=== PATIENT | male | born 1940 | race Caucasian/White ===

== ENCOUNTER 2018-01-20 09:28 | Observation (INO) ==
--- NOTE | 2018-01-20 09:47 | ED ---
HPI General Chief Complaint: Neuro Symptoms/Deficit Stated Complaint: Poss neuro Time Seen by Provider: 01/20/18 09:46 Source: patient Mode of arrival: ambulatory Limitations: no limitations History of Present Illness HPI Narrative: Patient apparently around 8:30 in the morning started to develop some left-sided facial weakness slight word speech and left upper extremity weakness, the patient and slowly started to resolve over the next hour ( presently only has slight facial weakness, but clear speech and no extremity weakness)... but was still concerned and came into the emergency department for evaluation. Patient is from [facility] and does not have any local doctors. Patient has a previous history of congestive heart failure AICD, pacemaker hyperlipidemia and diabetes as su factors. Onset (ago): hour(s) Last Observed Normal: 08:30 Timing confirmed by: family member Location: left face History of same: No Severity: mild Quality: weak Relieving factors: time Exacerbating factors: none Context: gradual onset On Anticoagulants: No Associated symptoms: denies other symptoms Treatments Prior to Arrival: Aspirin Related Data Home Medications Medication Instructions Recorded Confirmed allopurinol 300 mg PO BID 01/20/18 01/20/18 amlodipine 10 mg PO DAILY 01/20/18 01/20/18 atorvastatin 80 mg PO DAILY 01/20/18 01/20/18 carvedilol 25 mg PO BID 01/20/18 01/20/18 cephalexin [Keflex] 500 mg PO BID 01/20/18 01/20/18 chlorthalidone 25 mg PO DAILY 01/20/18 01/20/18 clonidine 1 patch TRANSDERMAL QWEEK 01/20/18 01/20/18 fentanyl 25 mcg TRANSDERMAL Q72H 01/20/18 01/20/18 gabapentin 300 mg PO TID 01/20/18 01/20/18 hydralazine 100 mg PO TID 01/20/18 01/20/18 icosapent ethyl [Vascepa] 2 g PO BID 01/20/18 01/20/18 losartan 100 mg PO BID 01/20/18 01/20/18 metformin 500 mg PO BID 01/20/18 01/20/18 ondansetron 4 mg PO Q6-8H PRN 01/20/18 01/20/18 oxycodone-acetaminophen [Percocet] 1 tab PO Q4-6H PRN 01/20/18 01/20/18 promethazine 25 mg PO Q6H PRN 01/20/18 01/20/18 sotalol 80 mg PO Q12H 01/20/18 01/20/18 Previous Rx's Medication Instructions Recorded clopidogrel [Plavix] 75 mg PO DAILY #30 tab 01/21/18 Allergies Allergy/AdvReac Type Severity Reaction Status Date / Time levofloxacin [From Levaquin] Allergy Swelling Verified 01/20/18 09:52 of Lip/Tongue/Throat Sulfa (Sulfonamide AdvReac Rash Verified 01/20/18 09:52 Antibiotics) zolpidem [From Ambien] AdvReac Confusion Verified 01/20/18 09:52 Review of Systems Except as stated in HPI: all other systems reviewed are negative PMFSH History History Provided By: Patient Medical History Medical History ASHD (arteriosclerotic heart disease) (Acute) Artificial pacemaker (Acute) CHF (congestive heart failure) (Acute) Chronic back pain (Acute) Controlled type 2 diabetes mellitus (Acute) Diabetes (Acute) GERD (gastroesophageal reflux disease) (Acute) Gout (Acute) HTN (hypertension) (Acute) Hiatal hernia (Acute) High cholesterol (Acute) Hyperlipemia (Acute) ICD (implantable cardioverter-defibrillator) in place (Acute) Past heart attack (Acute) Spinal stenosis (Acute) TIA (transient ischemic attack) (Acute) Surgical History Surgical History History of total bilateral knee replacement (Acute) Status post carotid surgery (Acute) Social History Social History Substance History: No History of Abuse Second Hand Smoke Exposure: No Smoking Status: Never smoker How Often Do You Have a Drink Containing Alcohol: Monthly or less Hx Recent Travel: Yes Recent Travel in [facility] within the Last 8 Weeks: Yes Recent Out of Country Travel within the Last 8 Weeks: No Immunization History Tetanus Immunization: <5 Years Hx Influenza Vaccine This Season: Yes Exam Narrative Exam Narrative: GENERAL: Well-nourished, well-developed patient in no apparent distress. SKIN: Warm and dry. HEAD: Atraumatic. Normocephalic. EYES: Pupils equal and round. No scleral icterus. No injection or drainage. ENT: No nasal bleeding or discharge. Mucous membranes pink and moist. NECK: Trachea midline. No JVD. CARDIOVASCULAR: Regular rate and rhythm. no rubs or gallops RESPIRATORY: No accessory muscle use. Clear to auscultation. Breath sounds equal bilaterally. GASTROINTESTINAL: Abdomen soft, non-tender, nondistended. No rebound or guarding MUSCULOSKELETAL: Extremities without clubbing, cyanosis, or edema. No obvious deformities. NEUROLOGICAL: Awake and alert. No obvious cranial nerve deficits. Motor grossly within normal limits. Five out of 5 muscle strength in the arms and legs. Normal speech. PSYCHIATRIC: Appropriate mood and affect; insight and judgment normal. Course Initial Documented Vital Signs Temperature 97.3 F L 01/20/18 09:30 Pulse Rate 62 01/20/18 09:30 Respiratory Rate 20 01/20/18 09:30 Blood Pressure 163/78 H 01/20/18 09:30 Pulse Oximetry 98 01/20/18 09:30 Last Documented Vital Signs Temperature 97.7 F 01/21/18 15:50 Pulse Rate 51 L 01/21/18 15:50 Respiratory Rate 16 01/21/18 15:50 Blood Pressure 112/59 L 01/21/18 15:50 Pulse Oximetry 96 01/21/18 15:50 NIH Stroke Scale NIH Stroke Scale Level of Consciousness: 0-Alert Orientation Questions: 0-Answers both correct Responds to Commands: 0-Both tasks correct Gaze Eye Movement: 0-Horizontal movement WNL Visual Doran: 0-No visual field defect Facial Movement: 1-Minor facial palsy Motor Functions Arm LEFT: 0-No drift Motor Functions Arm RIGHT: 0-No drift Motor Functions Leg LEFT: 0-No drift Motor Functions Leg RIGHT: 0-No drift Limb Ataxia: 0-No ataxia Sensory Loss: 0-No sensory loss Best Language: 0-Normal Articulation: 0-Normal Extinction or Inattention Sensory: 0-Absent Total: 1 Medical Decision Making Lab Data Lab results reviewed: Yes I reviewed the patient's lab results. Result diagrams: 01/21/18 03:35 01/21/18 03:35 Lab Results 01/20/18 01/20/18 01/20/18 Range/Units 10:04 10:04 10:04 WBC 10.8 (4.0-11.0) th/mm3 RBC 5.09 (4.50-5.90) mil/mm3 Hgb 14.1 (13.0-17.0) gm/dL POC Hgb (Calc) 15.0 (13.0-17.0) g/dL Hct 43.3 (39.0-51.0) % POC Hct 44.0 (39-51.0) % MCV 85.0 (80.0-100.0) fL MCH 27.7 (27.0-34.0) pg MCHC 32.6 (32.0-36.0) % RDW 17.2 (11.6-17.2) % Plt Count 217 (150-450) th/mm3 MPV 7.5 (7.0-11.0) fL Neut % (Auto) 73.0 H (16.0-70.0) % Lymph % (Auto) 15.1 (9.0-44.0) % Christian % (Auto) 6.3 (0.0-8.0) % Eos % (Auto) 4.9 H (0.0-4.0) % Baso % (Auto) 0.7 (0.0-2.0) % Neut # (Auto) 7.9 H (1.8-7.7) th/mm3 Lymph # (Auto) 1.6 (1.0-4.8) th/mm3 Christian # (Auto) 0.7 (0.0-0.9) th/mm3 Eos # (Auto) 0.5 H (0.0-0.4) th/mm3 Baso # (Auto) 0.1 (0.0-0.2) th/mm3 WBC Differential . Differential Comment Auto diff final PT 11.0 (9.8-11.6) sec INR 1.1 Ratio APTT 25.6 (24.3-30.1) sec Fibrinogen 309 (227-377) mg/dL POC Sodium 139 (137-144) mmol/L Sodium (136-145) meq/L POC Potassium 4.1 (3.6-5.0) mmol/L Potassium (3.5-5.1) meq/L POC Chloride 101 L (102-111) mmol/L Chloride (98-107) meq/L Carbon Dioxide (21.0-32.0) meq/L Anion Gap (5-15) meq/L POC BUN 13 (5-21) mg/dL BUN (7-18) mg/dL Creatinine (0.60-1.30) mg/dL POC Creatinine 1.1 (0.6-1.3) mg/dL Estimated GFR (>89) mL/min POC Glucose 145 H (68-110) mg/dL Random Glucose (74-106) mg/dL Hemoglobin A1c (4.3-6.0) % Calcium (8.5-10.1) mg/dL Phosphorus (2.5-4.9) mg/dL Magnesium (1.5-2.5) mg/dL Total Bilirubin (0.2-1.0) mg/dL AST (15-37) U/L ALT (12-78) U/L Alkaline Phosphatase (45-117) U/L Total Creatine Kinase (39-308) U/L Troponin I (0.02-0.05) ng/mL Total Protein (6.4-8.2) g/dL Albumin (3.4-5.0) g/dL Triglycerides (42-150) mg/dL Cholesterol (120-200) mg/dL LDL Cholesterol, Calc (0-99) mg/dL HDL Cholesterol (40.0-60.0) mg/dL Cholesterol/HDL Ratio Ratio TSH (0.358-3.740) uIU/mL Free T4 (0.76-1.46) ng/dL Urine Color (Yellw/Straw) Urine Clarity (Clear) Urine pH (5.0-8.5) Ur Specific [place] (1.002-1.035) Urine Protein (Neg-Trace) mg/dL Urine Glucose (UA) (Negative) mg/dL Urine Ketones (Negative) mg/dL Urine Occult Blood (Negative) Urine Nitrate (Negative) Urine Bilirubin (Negative) Urine Urobilinogen (Less than 2) mg/dL Ur Leukocyte Esterase (Negative) Urine RBC (0-3) /hpf Urine WBC (0-5) /hpf Ur Squamous Epith Cells (0-5) /hpf Urine Mucus (Occasional) /lpf Micro UA Comment Urine Culture Comments Blood Type Blood Type Recheck Antibody Screen 01/20/18 01/20/18 01/20/18 Range/Units 10:04 10:04 11:20 WBC (4.0-11.0) th/mm3 RBC (4.50-5.90) mil/mm3 Hgb (13.0-17.0) gm/dL POC Hgb (Calc) (13.0-17.0) g/dL Hct (39.0-51.0) % POC Hct (39-51.0) % MCV (80.0-100.0) fL MCH (27.0-34.0) pg MCHC (32.0-36.0) % RDW (11.6-17.2) % Plt Count (150-450) th/mm3 MPV (7.0-11.0) fL Neut % (Auto) (16.0-70.0) % Lymph % (Auto) (9.0-44.0) % Christian % (Auto) (0.0-8.0) % Eos % (Auto) (0.0-4.0) % Baso % (Auto) (0.0-2.0) % Neut # (Auto) (1.8-7.7) th/mm3 Lymph # (Auto) (1.0-4.8) th/mm3 Christian # (Auto) (0.0-0.9) th/mm3 Eos # (Auto) (0.0-0.4) th/mm3 Baso # (Auto) (0.0-0.2) th/mm3 WBC Differential Differential Comment PT (9.8-11.6) sec INR Ratio APTT (24.3-30.1) sec Fibrinogen (227-377) mg/dL POC Sodium (137-144) mmol/L Sodium (136-145) meq/L POC Potassium (3.6-5.0) mmol/L Potassium (3.5-5.1) meq/L POC Chloride (102-111) mmol/L Chloride (98-107) meq/L Carbon Dioxide (21.0-32.0) meq/L Anion Gap (5-15) meq/L POC BUN (5-21) mg/dL BUN (7-18) mg/dL Creatinine (0.60-1.30) mg/dL POC Creatinine (0.6-1.3) mg/dL Estimated GFR (>89) mL/min POC Glucose (68-110) mg/dL Random Glucose (74-106) mg/dL Hemoglobin A1c (4.3-6.0) % Calcium (8.5-10.1) mg/dL Phosphorus (2.5-4.9) mg/dL Magnesium (1.5-2.5) mg/dL Total Bilirubin (0.2-1.0) mg/dL AST (15-37) U/L ALT (12-78) U/L Alkaline Phosphatase (45-117) U/L Total Creatine Kinase 135 (39-308) U/L Troponin I Less than 0.02 L (0.02-0.05) ng/mL Total Protein (6.4-8.2) g/dL Albumin (3.4-5.0) g/dL Triglycerides (42-150) mg/dL Cholesterol (120-200) mg/dL LDL Cholesterol, Calc (0-99) mg/dL HDL Cholesterol (40.0-60.0) mg/dL Cholesterol/HDL Ratio Ratio TSH (0.358-3.740) uIU/mL Free T4 (0.76-1.46) ng/dL Urine Color Yellow (Yellw/Straw) Urine Clarity Clear (Clear) Urine pH 5.0 (5.0-8.5) Ur Specific [place] 1.026 (1.002-1.035) Urine Protein Negative (Neg-Trace) mg/dL Urine Glucose (UA) Negative (Negative) mg/dL Urine Ketones Negative (Negative) mg/dL Urine Occult Blood Negative (Negative) Urine Nitrate Negative (Negative) Urine Bilirubin Negative (Negative) Urine Urobilinogen Less than 2 (Less than 2) mg/dL Ur Leukocyte Esterase Negative (Negative) Urine RBC Less than 1 (0-3) /hpf Urine WBC Less than 1 (0-5) /hpf Ur Squamous Epith Cells <1 (0-5) /hpf Urine Mucus Few H (Occasional) /lpf Micro UA Comment Culture not ind Urine Culture Comments Culture not ind Blood Type B Positive Blood Type Recheck Required Antibody Screen Negative 01/20/18 01/20/18 01/20/18 Range/Units 16:54 18:30 22:04 WBC (4.0-11.0) th/mm3 RBC (4.50-5.90) mil/mm3 Hgb (13.0-17.0) gm/dL POC Hgb (Calc) (13.0-17.0) g/dL Hct (39.0-51.0) % POC Hct (39-51.0) % MCV (80.0-100.0) fL MCH (27.0-34.0) pg MCHC (32.0-36.0) % RDW (11.6-17.2) % Plt Count (150-450) th/mm3 MPV (7.0-11.0) fL Neut % (Auto) (16.0-70.0) % Lymph % (Auto) (9.0-44.0) % Christian % (Auto) (0.0-8.0) % Eos % (Auto) (0.0-4.0) % Baso % (Auto) (0.0-2.0) % Neut # (Auto) (1.8-7.7) th/mm3 Lymph # (Auto) (1.0-4.8) th/mm3 Christian # (Auto) (0.0-0.9) th/mm3 Eos # (Auto) (0.0-0.4) th/mm3 Baso # (Auto) (0.0-0.2) th/mm3 WBC Differential Differential Comment PT (9.8-11.6) sec INR Ratio APTT (24.3-30.1) sec Fibrinogen (227-377) mg/dL POC Sodium (137-144) mmol/L Sodium (136-145) meq/L POC Potassium (3.6-5.0) mmol/L Potassium (3.5-5.1) meq/L POC Chloride (102-111) mmol/L Chloride (98-107) meq/L Carbon Dioxide (21.0-32.0) meq/L Anion Gap (5-15) meq/L POC BUN (5-21) mg/dL BUN (7-18) mg/dL Creatinine (0.60-1.30) mg/dL POC Creatinine (0.6-1.3) mg/dL Estimated GFR (>89) mL/min POC Glucose 126 H 180 H (68-110) mg/dL Random Glucose (74-106) mg/dL Hemoglobin A1c (4.3-6.0) % Calcium (8.5-10.1) mg/dL Phosphorus (2.5-4.9) mg/dL Magnesium (1.5-2.5) mg/dL Total Bilirubin (0.2-1.0) mg/dL AST (15-37) U/L ALT (12-78) U/L Alkaline Phosphatase (45-117) U/L Total Creatine Kinase 121 (39-308) U/L Troponin I Less than 0.02 L (0.02-0.05) ng/mL Total Protein (6.4-8.2) g/dL Albumin (3.4-5.0) g/dL Triglycerides (42-150) mg/dL Cholesterol (120-200) mg/dL LDL Cholesterol, Calc (0-99) mg/dL HDL Cholesterol (40.0-60.0) mg/dL Cholesterol/HDL Ratio Ratio TSH (0.358-3.740) uIU/mL Free T4 (0.76-1.46) ng/dL Urine Color (Yellw/Straw) Urine Clarity (Clear) Urine pH (5.0-8.5) Ur Specific [place] (1.002-1.035) Urine Protein (Neg-Trace) mg/dL Urine Glucose (UA) (Negative) mg/dL Urine Ketones (Negative) mg/dL Urine Occult Blood (Negative) Urine Nitrate (Negative) Urine Bilirubin (Negative) Urine Urobilinogen (Less than 2) mg/dL Ur Leukocyte Esterase (Negative) Urine RBC (0-3) /hpf Urine WBC (0-5) /hpf Ur Squamous Epith Cells (0-5) /hpf Urine Mucus (Occasional) /lpf Micro UA Comment Urine Culture Comments Blood Type Blood Type Recheck Antibody Screen 01/21/18 01/21/18 01/21/18 Range/Units 00:15 03:25 03:35 WBC 9.7 (4.0-11.0) th/mm3 RBC 4.61 (4.50-5.90) mil/mm3 Hgb 12.9 L (13.0-17.0) gm/dL POC Hgb (Calc) (13.0-17.0) g/dL Hct 39.0 (39.0-51.0) % POC Hct (39-51.0) % MCV 84.6 (80.0-100.0) fL MCH 27.9 (27.0-34.0) pg MCHC 33.0 (32.0-36.0) % RDW 16.8 (11.6-17.2) % Plt Count 188 (150-450) th/mm3 MPV 7.1 (7.0-11.0) fL Neut % (Auto) 59.6 (16.0-70.0) % Lymph % (Auto) 23.9 (9.0-44.0) % Christian % (Auto) 9.2 H (0.0-8.0) % Eos % (Auto) 6.5 H (0.0-4.0) % Baso % (Auto) 0.8 (0.0-2.0) % Neut # (Auto) 5.8 (1.8-7.7) th/mm3 Lymph # (Auto) 2.3 (1.0-4.8) th/mm3 Christian # (Auto) 0.9 (0.0-0.9) th/mm3 Eos # (Auto) 0.6 H (0.0-0.4) th/mm3 Baso # (Auto) 0.1 (0.0-0.2) th/mm3 WBC Differential . Differential Comment Auto diff final PT (9.8-11.6) sec INR Ratio APTT (24.3-30.1) sec Fibrinogen (227-377) mg/dL POC Sodium (137-144) mmol/L Sodium (136-145) meq/L POC Potassium (3.6-5.0) mmol/L Potassium (3.5-5.1) meq/L POC Chloride (102-111) mmol/L Chloride (98-107) meq/L Carbon Dioxide (21.0-32.0) meq/L Anion Gap (5-15) meq/L POC BUN (5-21) mg/dL BUN (7-18) mg/dL Creatinine (0.60-1.30) mg/dL POC Creatinine (0.6-1.3) mg/dL Estimated GFR (>89) mL/min POC Glucose 100 (68-110) mg/dL Random Glucose (74-106) mg/dL Hemoglobin A1c (4.3-6.0) % Calcium (8.5-10.1) mg/dL Phosphorus (2.5-4.9) mg/dL Magnesium (1.5-2.5) mg/dL Total Bilirubin (0.2-1.0) mg/dL AST (15-37) U/L ALT (12-78) U/L Alkaline Phosphatase (45-117) U/L Total Creatine Kinase 97 (39-308) U/L Troponin I Less than 0.02 L (0.02-0.05) ng/mL Total Protein (6.4-8.2) g/dL Albumin (3.4-5.0) g/dL Triglycerides (42-150) mg/dL Cholesterol (120-200) mg/dL LDL Cholesterol, Calc (0-99) mg/dL HDL Cholesterol (40.0-60.0) mg/dL Cholesterol/HDL Ratio Ratio TSH (0.358-3.740) uIU/mL Free T4 (0.76-1.46) ng/dL Urine Color (Yellw/Straw) Urine Clarity (Clear) Urine pH (5.0-8.5) Ur Specific [place] (1.002-1.035) Urine Protein (Neg-Trace) mg/dL Urine Glucose (UA) (Negative) mg/dL Urine Ketones (Negative) mg/dL Urine Occult Blood (Negative) Urine Nitrate (Negative) Urine Bilirubin (Negative) Urine Urobilinogen (Less than 2) mg/dL Ur Leukocyte Esterase (Negative) Urine RBC (0-3) /hpf Urine WBC (0-5) /hpf Ur Squamous Epith Cells (0-5) /hpf Urine Mucus (Occasional) /lpf Micro UA Comment Urine Culture Comments Blood Type Blood Type Recheck Antibody Screen 01/21/18 01/21/18 01/21/18 Range/Units 03:35 03:35 03:35 WBC (4.0-11.0) th/mm3 RBC (4.50-5.90) mil/mm3 Hgb (13.0-17.0) gm/dL POC Hgb (Calc) (13.0-17.0) g/dL Hct (39.0-51.0) % POC Hct (39-51.0) % MCV (80.0-100.0) fL MCH (27.0-34.0) pg MCHC (32.0-36.0) % RDW (11.6-17.2) % Plt Count (150-450) th/mm3 MPV (7.0-11.0) fL Neut % (Auto) (16.0-70.0) % Lymph % (Auto) (9.0-44.0) % Christian % (Auto) (0.0-8.0) % Eos % (Auto) (0.0-4.0) % Baso % (Auto) (0.0-2.0) % Neut # (Auto) (1.8-7.7) th/mm3 Lymph # (Auto) (1.0-4.8) th/mm3 Christian # (Auto) (0.0-0.9) th/mm3 Eos # (Auto) (0.0-0.4) th/mm3 Baso # (Auto) (0.0-0.2) th/mm3 WBC Differential Differential Comment PT 11.8 H (9.8-11.6) sec INR 1.2 Ratio APTT (24.3-30.1) sec Fibrinogen (227-377) mg/dL POC Sodium (137-144) mmol/L Sodium 140 (136-145) meq/L POC Potassium (3.6-5.0) mmol/L Potassium 3.6 (3.5-5.1) meq/L POC Chloride (102-111) mmol/L Chloride 103 (98-107) meq/L Carbon Dioxide 28.1 (21.0-32.0) meq/L Anion Gap 9 (5-15) meq/L POC BUN (5-21) mg/dL BUN 18 (7-18) mg/dL Creatinine 1.14 (0.60-1.30) mg/dL POC Creatinine (0.6-1.3) mg/dL Estimated GFR 63 L (>89) mL/min POC Glucose (68-110) mg/dL Random Glucose 93 (74-106) mg/dL Hemoglobin A1c 6.5 H (4.3-6.0) % Calcium 8.3 L (8.5-10.1) mg/dL Phosphorus 3.9 (2.5-4.9) mg/dL Magnesium 1.6 (1.5-2.5) mg/dL Total Bilirubin 0.6 (0.2-1.0) mg/dL AST 12 L (15-37) U/L ALT 24 (12-78) U/L Alkaline Phosphatase 72 (45-117) U/L Total Creatine Kinase 92 (39-308) U/L Troponin I Less than 0.02 L (0.02-0.05) ng/mL Total Protein 6.5 (6.4-8.2) g/dL Albumin 3.3 L (3.4-5.0) g/dL Triglycerides 135 (42-150) mg/dL Cholesterol 78 L (120-200) mg/dL LDL Cholesterol, Calc 21 (0-99) mg/dL HDL Cholesterol 29.8 L (40.0-60.0) mg/dL Cholesterol/HDL Ratio 2.61 Ratio TSH 3.210 (0.358-3.740) uIU/mL Free T4 1.17 (0.76-1.46) ng/dL Urine Color (Yellw/Straw) Urine Clarity (Clear) Urine pH (5.0-8.5) Ur Specific [place] (1.002-1.035) Urine Protein (Neg-Trace) mg/dL Urine Glucose (UA) (Negative) mg/dL Urine Ketones (Negative) mg/dL Urine Occult Blood (Negative) Urine Nitrate (Negative) Urine Bilirubin (Negative) Urine Urobilinogen (Less than 2) mg/dL Ur Leukocyte Esterase (Negative) Urine RBC (0-3) /hpf Urine WBC (0-5) /hpf Ur Squamous Epith Cells (0-5) /hpf Urine Mucus (Occasional) /lpf Micro UA Comment Urine Culture Comments Blood Type Blood Type Recheck Antibody Screen 01/21/18 01/21/18 01/21/18 Range/Units 09:38 13:43 16:19 WBC (4.0-11.0) th/mm3 RBC (4.50-5.90) mil/mm3 Hgb (13.0-17.0) gm/dL POC Hgb (Calc) (13.0-17.0) g/dL Hct (39.0-51.0) % POC Hct (39-51.0) % MCV (80.0-100.0) fL MCH (27.0-34.0) pg MCHC (32.0-36.0) % RDW (11.6-17.2) % Plt Count (150-450) th/mm3 MPV (7.0-11.0) fL Neut % (Auto) (16.0-70.0) % Lymph % (Auto) (9.0-44.0) % Christian % (Auto) (0.0-8.0) % Eos % (Auto) (0.0-4.0) % Baso % (Auto) (0.0-2.0) % Neut # (Auto) (1.8-7.7) th/mm3 Lymph # (Auto) (1.0-4.8) th/mm3 Christian # (Auto) (0.0-0.9) th/mm3 Eos # (Auto) (0.0-0.4) th/mm3 Baso # (Auto) (0.0-0.2) th/mm3 WBC Differential Differential Comment PT (9.8-11.6) sec INR Ratio APTT (24.3-30.1) sec Fibrinogen (227-377) mg/dL POC Sodium (137-144) mmol/L Sodium (136-145) meq/L POC Potassium (3.6-5.0) mmol/L Potassium (3.5-5.1) meq/L POC Chloride (102-111) mmol/L Chloride (98-107) meq/L Carbon Dioxide (21.0-32.0) meq/L Anion Gap (5-15) meq/L POC BUN (5-21) mg/dL BUN (7-18) mg/dL Creatinine (0.60-1.30) mg/dL POC Creatinine (0.6-1.3) mg/dL Estimated GFR (>89) mL/min POC Glucose 134 H 116 H 153 H (68-110) mg/dL Random Glucose (74-106) mg/dL Hemoglobin A1c (4.3-6.0) % Calcium (8.5-10.1) mg/dL Phosphorus (2.5-4.9) mg/dL Magnesium (1.5-2.5) mg/dL Total Bilirubin (0.2-1.0) mg/dL AST (15-37) U/L ALT (12-78) U/L Alkaline Phosphatase (45-117) U/L Total Creatine Kinase (39-308) U/L Troponin I (0.02-0.05) ng/mL Total Protein (6.4-8.2) g/dL Albumin (3.4-5.0) g/dL Triglycerides (42-150) mg/dL Cholesterol (120-200) mg/dL LDL Cholesterol, Calc (0-99) mg/dL HDL Cholesterol (40.0-60.0) mg/dL Cholesterol/HDL Ratio Ratio TSH (0.358-3.740) uIU/mL Free T4 (0.76-1.46) ng/dL Urine Color (Yellw/Straw) Urine Clarity (Clear) Urine pH (5.0-8.5) Ur Specific [place] (1.002-1.035) Urine Protein (Neg-Trace) mg/dL Urine Glucose (UA) (Negative) mg/dL Urine Ketones (Negative) mg/dL Urine Occult Blood (Negative) Urine Nitrate (Negative) Urine Bilirubin (Negative) Urine Urobilinogen (Less than 2) mg/dL Ur Leukocyte Esterase (Negative) Urine RBC (0-3) /hpf Urine WBC (0-5) /hpf Ur Squamous Epith Cells (0-5) /hpf Urine Mucus (Occasional) /lpf Micro UA Comment Urine Culture Comments Blood Type Blood Type Recheck Antibody Screen Imaging Data Attestation: I personally reviewed and interpreted this imaging study as follows : Radiologist's impression: Chest X-Ray 01/20/18 09:53 CONCLUSION: 1. Mild platelike atelectasis versus scarring in the right middle lobe. 2. Otherwise, the rest of the lungs are grossly clear. Head CT 01/20/18 09:53 CONCLUSION: 1. Unremarkable CT scan of the brain for patient's age. Head CTA 01/20/18 09:53 CONCLUSION: 1. Unremarkable CTA of the brain. Neck CTA 01/20/18 09:53 CONCLUSION: 1. Eccentric bulky calcified plaque extending from the right carotid bulb to the internal carotid origin with resultant approximately 25-30% stenosis. 2. Circumferential calcified plaque at the origin of the left internal carotid artery with resultant approximately 20-25% stenosis. 3. Patent bilateral vertebral arteries. 4. Small bilateral thyroid nodules. Carotid Doppler Study 01/20/18 15:49 CONCLUSION: 1. Right Internal Carotid Artery: Findings indicate 50-69% stenosis. 2. Left Internal Carotid Artery: Findings indicate <50% stenosis. 3. Please note that a CTA of the carotids was performed on the same day and less than 30% stenosis is verified bilaterally. CTA is more accurate in delineating severity of disease than ultrasound. Discharge Plan Discharge Disposition Patient Disposition: 01 Discharge Home Discharge Condition Condition: Stable Discharge Order Discharge Orders: Discharge Order (Routine); Ordered 01/21/18 Ordered By: Vanesa Banegas Discharge Details Discharge Comment: Pending ECHO result Diagnosis: TIA (transient ischemic attack) Physicians Team ED Provider: Dionicio Don Primary Care Provider: UNKNOWN, Attending Provider: Collins Veloz Other Providers: Reese Messina Interventions Interventions: ED Discharge Assessment Last Done: 01/20/18 17:20 Status ED Status: Left Department Discharge Information Discharge Date/Time: 01/20/18 17:20
--- NOTE | 2018-01-20 10:22 | XR ---
EXAM DATE: 01/20/2018 10:17 AM EDT AGE/SEX: 77 years / Male INDICATIONS: . Shortness of breath. CLINICAL DATA: This is the patient's initial encounter. Patient reports that signs and symptoms have been present for 1 day and indicates a pain score of 0/10. MEDICAL/SURGICAL HISTORY: Congestive heart failure. Hypertension. Pacemaker. Defibrillator. COMPARISON: No prior exams available for comparison. FINDINGS: A single AP view of the chest demonstrates the lungs to be symmetrically aerated without evidence of mass, acute infiltrate or effusion. There is some minimal platelike atelectasis versus scarring in th e right middle lobe. The heart size is mildly enlarged. There is a pacemaker overlying the left chest . The bony structures are grossly intact.. CONCLUSION: 1. Mild platelike atelectasis versus scarring in the right middle lobe. 2. Otherwise, the rest of the lungs are grossly clear. Electronically signed by: Jf Mac MD 01/20/2018 10:21 AM EDT
[2018-01-20 10:24] LABS: Baso # (Auto) 0.1 th/mm3 (0.0-0.2); Baso % (Auto) 0.7 % (0.0-2.0); Eos # (Auto) 0.5 th/mm3 (0.0-0.4); Eos % (Auto) 4.9 % (0.0-4.0); Hematocrit 43.3 % (39.0-51.0); Hemoglobin 14.1 gm/dL (13.0-17.0); Lymph # (Auto) 1.6 th/mm3 (1.0-4.8); Lymph % (Auto) 15.1 % (9.0-44.0); Mean Corpuscular HGB Conc 32.6 % (32.0-36.0); Mean Corpuscular Hemoglobin 27.7 pg (27.0-34.0); Mean Platelet Volume 7.5 fL (7.0-11.0); Mono # (Auto) 0.7 th/mm3 (0.0-0.9); Mono % (Auto) 6.3 % (0.0-8.0); Neut # (Auto) 7.9 th/mm3 (1.8-7.7); Platelet Count 217 th/mm3 (150-450); Red Blood Count 5.09 mil/mm3 (4.50-5.90); Red Cell Distribution Width 17.2 % (11.6-17.2); White Blood Count 10.8 th/mm3 (4.0-11.0)
[2018-01-20 10:29] LABS: Activated Partial Thrombo Time 25.6 sec (24.3-30.1); INR 1.1 Ratio
[2018-01-20 10:45] LABS: Creatine Kinase 135 U/L (39-308)
[2018-01-20] MEDS: Sod Chloride 0.9% Inj 1,000 ML IV.CONT SCH (10:52)
--- NOTE | 2018-01-20 10:55 | CT ---
EXAM DATE: 01/20/2018 10:49 AM EDT AGE/SEX: 77 years / Male INDICATIONS: Left face numbness and left arm weakness CLINICAL DATA: This is the patient's initial encounter. Patient reports that signs and symptoms have been present for 1 day and indicates a pain score of 0/10. MEDICAL/SURGICAL HISTORY: Cardiovascular disease. Diabetes. Defibrillator. Pacemaker. RADIATION DOSE: 37.47 CTDI (mGy) COMPARISON: No prior exams available for comparison. TECHNIQUE: CT of the head without contrast. Using automated exposure control and adjustment of the mA and/or kV according to patient size, radiation dose was kept as low as reasonably achievable to ob tain optimal diagnostic quality images. DICOM format image data is available electronically for revi ew and comparison. FINDINGS: Cerebrum: The ventricles are normal for age. No evidence of midline shift, mass lesion, hemorrhage or acute infarction. No extraaxial fluid collections are seen. Posterior Fossa: The cerebellum and brainstem are intact. The 4th ventricle is midline. The cerebe llopontine angle is unremarkable. Extracranial: The visualized portion of the orbits is intact. Skull: The calvaria is intact. No evidence of skull fracture. CONCLUSION: 1. Unremarkable CT scan of the brain for patient's age. Electronically signed by: Jf Mac MD 01/20/2018 10:54 AM EDT
[2018-01-20 11:39] LABS: Bilirubin,Urine Negative (Negative); Clarity,Urine Clear (Clear); Color,Urine Yellow (Yellw/Straw); Glucose,Urine (UA) Negative (Negative); Leukocyte Esterase,Urine Negative (Negative); Mucus,Urine Few /lpf (Occasional); Nitrite,Urine Negative (Negative); Specific Gravity,Urine 1.026 (1.002-1.035); Squamous Epithelial Cell,Urine <1 /hpf (0-5)
--- NOTE | 2018-01-20 12:08 | ECG ---
Date Performed: 01/20/2018 Time Performed: 10:02:35 PTAGE: 77 years EKG: SINUS BRADYCARDIA WITH FIRST DEGREE AV BLOCK ANTERIOR MYOCARDIAL INFARCTION INFERIOR MYOCAR DIAL INFARCTION ABNORMAL ECG NO PREVIOUS TRACING DOCTOR: Juan Luna Interpretating Date/Time 01/20/2018 12:06:31
--- NOTE | 2018-01-20 13:14 | CT ---
EXAM DATE: 01/20/2018 1:03 PM EDT AGE/SEX: 77 years / Male INDICATIONS: Left face numbness and left arm weakness CLINICAL DATA: This is the patient's initial encounter. Patient reports that signs and symptoms have been present for 1 day and indicates a pain score of 0/10. MEDICAL/SURGICAL HISTORY: Diabetes. Cardiovascular disease. Defibrillator. Pacemaker. RADIATION DOSE: 28.20 CTDI (mGy) ; Combined studies COMPARISON: [facility] [place], CT HEAD W/O CONTRAST, 01/20/2018. . TECHNIQUE: Volumetric scanning was performed using a multi-row detector CT scanner during bolus infu delores of 73 ml Omnipaque 350 (iohexol) nonionic water-soluble contrast as a cumulative dose for multi ple exams. The data was post processed with a variety of visualization algorithms including full vo lume maximum intensity projection, multi-planar sliding thin slab reformation, curved planar reformat ion, and surface rendering techniques. Using automated exposure control and adjustment of the mA and /or kV according to patient size, radiation dose was kept as low as reasonably achievable to obtain o ptimal diagnostic quality images. DICOM format image data is available electronically for review and comparison. FINDINGS: There is excellent visualization of the major intracranial arteries out to the second-order branch ve ssels. There is no evidence for aneurysm, vessel truncation or stenosis, and no evidence for vascula r malformation. There are bilateral patent posterior communicating arteries. CONCLUSION: 1. Unremarkable CTA of the brain. Electronically signed by: Jf Mac MD 01/20/2018 1:12 PM EDT
--- NOTE | 2018-01-20 13:40 | CT ---
EXAM DATE: 01/20/2018 1:02 PM EDT AGE/SEX: 77 years / Male INDICATIONS: Left face numbness and left arm weakness CLINICAL DATA: This is the patient's initial encounter. Patient reports that signs and symptoms have been present for 1 day and indicates a pain score of 0/10. MEDICAL/SURGICAL HISTORY: Diabetes. Cardiovascular disease. Defibrillator. Pacemaker. RADIATION DOSE: 28.20 CTDI (mGy) ; Combined studies COMPARISON: [facility], CTA HEAD W CONTRAST W 3D, 01/20/2018. . TECHNIQUE: Volumetric scanning was performed using a multirow detector CT scanner during bolus infus ion of 73 ml Omnipaque 350 (iohexol) nonionic water-soluble contrast as a cumulative dose for multip le exams. The data was postprocessed with a variety of visualization algorithms including full-volu me maximum intensity projection, multiplanar sliding thin-slab reformation, curved-planar reformation , and surface-rendering techniques. Using automated exposure control and adjustment of the mA and/or kV according to patient size, radiation dose was kept as low as reasonably achievable to obtain opti mal diagnostic quality images. DICOM format image data is available electronically for review and co mparison. Elevated flow velocities and ICA/CCA ratios have been found to correlate with increased degrees of ve ssel stenosis, calculated as percentage of diameter relative to a normal segment of distal ICA/CCA. FINDINGS: Aortic Arch: There is two-vessel arch anatomy. No evidence of ostial narrowing Right Carotid: The common carotid artery is intact. Eccentric bulky calcified plaque extending from the carotid bulb to the origin of the internal carotid artery. Resultant approximately 25-30% stenosi s of the internal carotid origin. Internal carotid artery is otherwise patent to the skull base. The external carotid artery is intact. Left Carotid: The common carotid artery is intact. The carotid bulb has a normal configuration with out ulceration or narrowing circumferential calcified plaque at the origin of the internal carotid ar frederic with resultant approximately 20-25% stenosis. The external carotid artery is intact. Vertebrals: The vertebral arteries have a symmetric diameter. No stenotic lesions are seen. General Findings: Lung apices are clear. Bilateral thyroid nodules measuring up to 1 cm. No significa nt adenopathy. CONCLUSION: 1. Eccentric bulky calcified plaque extending from the right carotid bulb to the internal carotid or igin with resultant approximately 25-30% stenosis. 2. Circumferential calcified plaque at the origin of the left internal carotid artery with resultant approximately 20-25% stenosis. 3. Patent bilateral vertebral arteries. 4. Small bilateral thyroid nodules. Electronically signed by: Victor Hugo Fernandez MD 01/20/2018 1:38 PM EDT
[2018-01-20] MEDS ORDERED: Dextrose 50% in Water 50 ML Vial IV.PUSH PRN ×2 (15:50→16:00)
[2018-01-20] MEDS ORDERED: Acetaminophen 325 MG Tablet PO PRN (15:59)
[2018-01-20] MEDS ORDERED: oxyCODONE/Acetaminophen 10/325 Tablet PO PRN (15:59)
[2018-01-20] MEDS ORDERED: Naloxone Inj 0.4 MG/ML Vial IV.PUSH PRN (15:59)
[2018-01-20] MEDS ORDERED: Morphine Inj 4 MG/ML Vial IV.PUSH PRN ×3 (15:59)
--- NOTE | 2018-01-20 16:25 | P.HPIM ---
History of Present Illness Service: [facility] Primary Care Physician: UNKNOWN Chief Complaint: Possible neuro symptoms involving the left side History of Present Illness: Patient is a 77-year-old gentleman who presented to the emergency department today after having some left-sided facial weakness and some slight warty speech starting at 8:30 in the morning with some word finding and some left upper extremity weakness. The patient has slowly started to improve over the next hour or so but was still concerned came to the emergency department for evaluation. Patient is visiting from [place], [place]. Does not have any local doctors. Is staying in [facility]. Has previous history of congestive heart failure, AICD placement, pacemaker placement, hyperlipidemia and diabetes. Patient also notes that he is recently being treated for sinus infection with an unknown medication which we will try to obtain Patient was noted at 830 this morning to have some left facial weakness and difficulty with speech took an aspirin prior to coming to the hospital. - Diagnosis (1) TIA (transient ischemic attack) (2) Diabetes (3) Hypertension (4) Hyperlipidemia (5) Obesity (6) Gout (7) GERD (gastroesophageal reflux disease) (8) Hx TIA/stroke w/o resid Inpatient Certification: I certify that the inpatient services were ordered in accordance with Medicare regulations governing the order. This includes certification that hospital inpatient services are reasonable and necessary and in the case of services not specified as inpatient-only under 42 CFR 419.22(n), that they are appropriately provided as inpatient services in accordance to with the 2-midnight benchmark under 43 CFR 412.3(e) Review of Systems All other systems reviewed negative except as stated in HPI Constitutional: Reports fatigue, Denies anorexia, Denies body ache(s), Denies chills, Denies daytime sleepiness, Denies fever(s), Denies malaise, Denies night sweats Eyes: Denies blind spots, Denies blurry vision, Denies discharge, Denies dry eyes, Denies pain, Denies requires corrective lenses Ears, Nose, Mouth, and Throat: Denies abnormal hearing, Denies dental pain, Denies ear pain, Denies lip swelling, Denies nasal discharge, Denies nose pain, Denies ringing in the ears Cardiovascular: Denies chest pain, Denies excessive sweating, Denies generalized swelling, Denies leg sores, Denies rapid, pounding, or irregular heartbeat, Denies shortness of breath with activity, Denies shortness of breath causing sudden awakening Respiratory: Denies change in phlegm color, Denies excessive phlegm production, Denies shortness of breath, Denies wheezing Gastrointestinal: Denies abdominal pain, Denies belching, Denies constant urge to pass stool, Denies constipation, Denies feeling full early, Denies pain with swallowing Genitourinary: Denies testicle pain, Denies urinary frequency Musculoskeletal: Reports joint pain, Denies abnormal walking, Denies loss of height, Denies radiating pain into limb Skin/Breast: Denies breast pain, Denies change in skin color, Denies hair loss, Denies nipple discharge, Denies rash, Denies wounds Neurologic: Reports abnormal speech (Improved now), Reports other, Denies abnormal hearing, Denies abnormal walking, Denies dizziness, Denies localized weakness, Denies other visual disturbances, Denies seizure-like activity Psychiatric: Denies seeing things others do not see, Denies tactile hallucinations, Denies thoughts of hurting/killing yourself Endocrine: Denies cold intolerance, Denies increased hunger, Denies rapid, pounding, or irregular heartbeat Hematologic/Lymphatic: Denies easy bleeding, Denies easy bruising, Denies enlarged lymph nodes Allergic/Immunologic: Denies GI upset with certain foods, Denies hives, Denies seasonal runny nose, Denies throat swelling PMFSH - History History Provided By: Patient - Medical History Medical History: Medical History (Last Updated 01/20/18 @ 15:45 by Vonnie Shea) ASHD (arteriosclerotic heart disease) Artificial pacemaker CHF (congestive heart failure) Chronic back pain Controlled type 2 diabetes mellitus Diabetes GERD (gastroesophageal reflux disease) Gout HTN (hypertension) Hiatal hernia High cholesterol Hyperlipemia ICD (implantable cardioverter-defibrillator) in place Past heart attack Spinal stenosis TIA (transient ischemic attack) - Surgical History Surgical History: Surgical History (Last Updated 01/20/18 @ 10:15 by Vivek Wilkins) History of total bilateral knee replacement Status post carotid surgery - Tobacco History Second Hand Smoke Exposure: No Smoking Status: Never smoker - Alcohol History How Often Do You Have a Drink Containing Alcohol: Monthly or less - Substance Use History Substance History: No History of Abuse - Travel History History of Recent Travel: Yes Recent Travel in the [place] Within the Last 8 Weeks: Yes Recent Travel Out of the Country Within the Last 8 Weeks: No - Immunization History Tetanus Immunization: >5 Years Hx Influenza Vaccine This Season: Yes Medications and Allergies Active Medications: Active Medications Acetaminophen (Tylenol) 650 mg PO Q6HR PRN PRN Reason: PAIN SCALE 1 TO 2 Allopurinol (Zyloprim) 300 mg PO BID [facility] Amlodipine Besylate (Norvasc) 10 mg PO DAILY [facility] Atorvastatin Calcium (Lipitor) 80 mg PO DAILY [facility] Clonidine HCl (Catapress-Tts 0.2 Mg Patch.7d) 1 patch T-DERMAL QWEEK [facility] Dextrose (D50w Vial) 50 ml IV.PUSH UNSCH PRN PRN Reason: per Hypoglycemic Protocol Dextrose (D50w Vial) 50 ml IV.PUSH UNSCH PRN PRN Reason: PER HYPOGLYCEMIA PROTOCOL Famotidine (Pepcid) 20 mg PO BID [facility] Fentanyl (Duragesic 25 Mcg Patch.72hr) patch T-DERMAL Q72H [facility] Gabapentin (Neurontin) 300 mg PO TID [facility] Glucagon (Glucagon Inj) 1 mg OTHER UNSCH PRN PRN Reason: per Hypoglycemic Protocol Glucagon (Glucagon Inj) 1 mg OTHER PRN PRN PRN Reason: for Hypoglycemia Protocol Hydralazine HCl (Apresoline) 100 mg PO TID [facility] Sodium Chloride (Ns Inj) 1,000 mls @ 70 mls/hr IV.CONT .[id number] [facility] Last Admin: 01/20/18 10:52 Dose: 70 mls/hr Insulin Aspart (Novolog Insulin Correctional Sugar Inj) 0 unit SQ ACHS AND 3AM JOSE; Protocol Losartan Potassium (Cozaar) 100 mg PO BID [facility] Morphine Sulfate (Morphine Inj) 2 mg IV.PUSH Q3H PRN PRN Reason: PAIN 3-5; IF UABLE TO TAKE PO Morphine Sulfate (Morphine Inj) 4 mg IV.PUSH Q3H PRN PRN Reason: BREAKTHROUGH PAIN Morphine Sulfate (Morphine Inj) 4 mg IV.PUSH Q3H PRN PRN Reason: PAIN 6-10;IF UNABLE TO TAKE PO Naloxone HCl (Narcan Inj) 0.4 mg IV.PUSH UNSCH PRN PRN Reason: SEE LABEL COMMENTS Non-Formulary Medication (Carvedilol [Carvedilol]) 25 mg PO BID [facility] Non-Formulary Medication (Chlorthalidone) 25 mg PO DAILY [facility] Non-Formulary Medication (Icosapent Ethyl [Vascepa]) 2 g PO BID [facility] Ondansetron HCl (Zofran Odt) 4 mg PO Q6H PRN PRN Reason: Nausea Oxycodone/Acetaminophen (Percocet 10/325 Mg) 1 tab PO Q6H PRN PRN Reason: PAIN SCALE 6 TO 10 Oxycodone/Acetaminophen (Percocet 5/325 Mg) 1 tab PO Q6H PRN PRN Reason: PAIN SCALE 3 TO 5 Promethazine HCl (Phenergan) 25 mg PO Q6H PRN PRN Reason: Nausea Sotalol HCl (Betapace) 80 mg PO Q12HR [facility] Allergies Allergy/AdvReac Type Severity Reaction Status Date / Time levofloxacin [From Levaquin] Allergy Swelling Verified 01/20/18 09:52 of Lip/Tongue/Throat Sulfa (Sulfonamide AdvReac Rash Verified 01/20/18 09:52 Antibiotics) zolpidem [From Ambien] AdvReac Confusion Verified 01/20/18 09:52 Home Medications Medication Instructions Recorded Confirmed Type allopurinol 300 mg PO BID 01/20/18 01/20/18 History amlodipine 10 mg PO DAILY 01/20/18 01/20/18 History aspirin [Aspirin Low Dose] 81 mg PO DAILY 01/20/18 01/20/18 History atorvastatin 80 mg PO DAILY 01/20/18 01/20/18 History carvedilol 25 mg PO BID 01/20/18 01/20/18 History chlorthalidone 25 mg PO DAILY 01/20/18 01/20/18 History clonidine 1 patch TRANSDERMAL QWEEK 01/20/18 01/20/18 History fentanyl 25 mcg TRANSDERMAL Q72H 01/20/18 01/20/18 History gabapentin 300 mg PO TID 01/20/18 01/20/18 History hydralazine 100 mg PO TID 01/20/18 01/20/18 History icosapent ethyl [Vascepa] 2 g PO BID 01/20/18 01/20/18 History losartan 100 mg PO BID 01/20/18 01/20/18 History metformin 500 mg PO BID 01/20/18 01/20/18 History ondansetron 4 mg PO Q6-8H PRN 01/20/18 01/20/18 History oxycodone-acetaminophen [Percocet] 1 tab PO Q4-6H PRN 01/20/18 01/20/18 History promethazine 25 mg PO Q6H PRN 01/20/18 01/20/18 History sotalol 80 mg PO Q12H 01/20/18 01/20/18 History Exam Vital signs: Vital Signs 01/20/18 09:30 01/20/18 09:36 01/20/18 10:07 Temperature 97.3 F L Pulse Rate 62 94 H Respiratory Rate 20 Blood Pressure 163/78 H Pulse Oximetry 98 95 01/20/18 10:53 01/20/18 11:50 01/20/18 14:00 Temperature 97.8 F 97.8 F 98.1 F Pulse Rate 58 L 58 L 62 Respiratory Rate 16 16 18 Blood Pressure 147/67 H 143/71 H 167/71 H Pulse Oximetry 97 98 97 Intake & Output 01/19/18 01/20/18 01/20/18 18:59 06:59 18:59 Output Total 300 / 300 Balance -300 / -300 Weight 86.183 kg Output: Urine 300 / 300 Other: # Voids 1 Narrative: GENERAL: Awake alert and oriented 3 talkative and cooperative in no acute distress SKIN: Warm and dry. HEAD: Atraumatic. Normocephalic. EYES: Pupils equal and round. No scleral icterus. No injection or drainage. Extraocular muscles intact ENT: No nasal bleeding or discharge. Mucous membranes pink and moist. Tongue is midline NECK: Trachea midline. No JVD. No carotid bruits CARDIOVASCULAR: IRRegular rate and rhythm. S1-S2 no S3 or S4 no heave or thrill or rub or gallop RESPIRATORY: No accessory muscle use. Clear to auscultation. Breath sounds equal bilaterally. GASTROINTESTINAL: Abdomen soft, non-tender, nondistended. Hepatic and splenic margins not palpable. Obese MUSCULOSKELETAL: Extremities without clubbing, cyanosis, or edema. No obvious deformities. NEUROLOGICAL: Awake and alert. No obvious cranial nerve deficits. Motor grossly within normal limits. Five out of 5 muscle strength in the arms and legs. Normal speech. PSYCHIATRIC: Appropriate mood and affect; insight and judgment normal. Results - Labs CBC & Chem 7: 01/20/18 10:04 Labs: Short CBC 01/20/18 Range/Units 10:04 WBC 10.8 (4.0-11.0) th/mm3 Hgb 14.1 (13.0-17.0) gm/dL Hct 43.3 (39.0-51.0) % Plt Count 217 (150-450) th/mm3 Cardiac Enzymes 01/20/18 Range/Units 10:04 Total Creatine Kinase 135 (39-308) U/L Troponin I Less than 0.02 L (0.02-0.05) ng/mL Urine 01/20/18 Range/Units 11:20 Urine Color Yellow (Yellw/Straw) Urine Clarity Clear (Clear) Urine pH 5.0 (5.0-8.5) Ur Specific [place] 1.026 (1.002-1.035) Urine Protein Negative (Neg-Trace) mg/dL Urine Glucose (UA) Negative (Negative) mg/dL - Imaging Impressions Chest X-Ray 01/20/18 09:53 CONCLUSION: 1. Mild platelike atelectasis versus scarring in the right middle lobe. 2. Otherwise, the rest of the lungs are grossly clear. Head CT 01/20/18 09:53 CONCLUSION: 1. Unremarkable CT scan of the brain for patient's age. Head CTA 01/20/18 09:53 CONCLUSION: 1. Unremarkable CTA of the brain. Neck CTA 01/20/18 09:53 CONCLUSION: 1. Eccentric bulky calcified plaque extending from the right carotid bulb to the internal carotid origin with resultant approximately 25-30% stenosis. 2. Circumferential calcified plaque at the origin of the left internal carotid artery with resultant approximately 20-25% stenosis. 3. Patent bilateral vertebral arteries. 4. Small bilateral thyroid nodules. Caprini VTE Risk Assessment Caprini VTE Risk Assessment: Moderate/High Risk (score >= 2) Caprini Risk Assessment Model: Point Value = 1 Point Value = 2 Point Value = 3 Point Value = 5 Age 41-60 Minor surgery BMI > 25 kg/m2 Swollen legs Varicose veins or History of unexplained or recurrent spontaneous Oral contraceptives or hormone replacement Sepsis (< 1 month) Serious lung disease, including pneumonia (< 1 month) Abnormal pulmonary function Acute myocardial infarction Congestive heart failure (< 1 month) History of inflammatory bowel disease Medical patient at bed rest Age 61-74 Arthroscopic surgery Major open surgery (> 45 min) Laparoscopic surgery (> 45 min) Malignancy Confined to bed (> 72 hours) Immobilizing plaster cast Central venous access Age >= 75 History of VTE Family history of VTE Factor V Leiden Prothrombin [id number] Lupus anticoagulant Anticardiolipin antibodies Elevated serum homocysteine Heparin-induced thrombocytopenia Other congenital or acquired thrombophilia Stroke (< 1 month) Elective arthroplasty Hip, pelvis, or leg fracture Acute spinal cord injury (< 1 month) Prophylaxis Regimen: Total Risk Factor Score Risk Level Prophylaxis Regimen 0-1 Low Early ambulation 2 Moderate Order ONE of the following: *Sequential Compression Device (SCD) *Heparin 5000 units SQ BID 3-4 Higher Order ONE of the following medications: *Heparin 5000 units SQ TID *Enoxaparin/Lovenox 40 mg SQ daily (WT < 150 kg, CrCl > 30 mL/min) *Enoxaparin/Lovenox 30 mg SQ daily (WT < 150 kg, CrCl > 10-29 mL/min) *Enoxaparin/Lovenox 30 mg SQ BID (WT < 150 kg, CrCl > 30 mL/min) AND/OR *Sequential Compression Device (SCD) 5 or more Highest Order ONE of the following medications: *Heparin 5000 units SQ TID (Preferred with Epidurals) *Enoxaparin/Lovenox 40 mg SQ daily (WT < 150 kg, CrCl > 30 mL/min) *Enoxaparin/Lovenox 30 mg SQ daily (WT < 150 kg, CrCl > 10-29 mL/min) *Enoxaparin/Lovenox 30 mg SQ BID (WT < 150 kg, CrCl > 30 mL/min) AND *Sequential Compression Device (SCD) Assessment and Plan - Assessment (1) TIA (transient ischemic attack) Code(s): G45.9 - Transient cerebral ischemic attack, unspecified Status: Acute (2) Diabetes Code(s): E11.9 - Type 2 diabetes mellitus without complications Status: Acute (3) Hypertension Code(s): I10 - Essential (primary) hypertension Status: Acute (4) Hyperlipidemia Code(s): E78.5 - Hyperlipidemia, unspecified Status: Acute (5) Obesity Code(s): E66.9 - Obesity, unspecified Status: Acute (6) Gout Code(s): M10.9 - Gout, unspecified Status: Acute (7) GERD (gastroesophageal reflux disease) Code(s): K21.9 - Gastro-esophageal reflux disease without esophagitis Status: Acute (8) Hx TIA/stroke w/o resid Code(s): Z86.73 - Personal history of transient ischemic attack (TIA), and cerebral infarction without residual deficits Status: Acute - Plan Transient ischemic attack -Consult neurology -Carotid Dopplers -Echocardiogram -Aspirin -Fasting lipids -Cannot do MRIs due to pacemaker -Interrogate pacemaker -PT, OT, speech therapy eval and treat -Check TSH and free T4 and hemoglobin A1c -A.m. labs -Has already had CT of the head and CTAs of head and neck -Continue on aspirin -History of carotid surgery in the past Diabetes mellitus continue on sliding scale with Accu-Cheks before meals and at bedtime History of AICD/permanent pacemaker will ask that the pacemaker rep come interrogate this Chronic back pain continue on his Percocets and his fentanyl patch GERD continue on Pepcid Hyperlipidemia continue on statin check lipid its in the morning History of MS trend troponins and cardiac enzymes Osteo-arthritis/chronic pain continue on Percocet and fentanyl patch We will consult neurology as well as case management Hopefully everything will remain negative and continue on an aspirin Try to obtain medications that he been taking for his "acute sinus infection Acute sinus infection please obtain home medication and is taking for this Discussed with RN and patient and case management continue GI prophylaxis with Pepcid DVT prophylaxis with Lovenox A.m. labs Code Status: Full code Discussed Condition With: RN and patient and and emergency room physician Discharge Planning: Hopefully discharge tomorrow if cleared by neurology and no interesting findings found Not able to do MRIs due to the pacemaker
[2018-01-20] MEDS: Insulin NovoLOG Aspart Correctional Sugar Inj SQ SCH ×2 (17:01→22:53)
[2018-01-20] MEDS: Gabapentin 300 MG Capsule PO SCH (17:02)
--- NOTE | 2018-01-20 18:16 | MB ---
cc: Reese Mayorga MD DATE: 01/20/2018 HISTORY OF PRESENT ILLNESS: A 77-year-old right-handed man with hypertension, CHF, AICD, pacemaker, [place], hypercholesterolemia, non-insulin dependent diabetes. He does take a baby aspirin a day. He has had some insomnia for quite some time and then he gets up in the morning and he has some nausea. He has had a blocked ear and sinus problem for the last several weeks, was evidently admitted the hospital several weeks ago, gave him some antibiotics, did not seem to help. When he got up this morning and said to his that he needed to go to the ER just because he felt like his ear was blocked. He denied any left facial numbness or droop or slurred speech, chest pain, palpitations, or headache. He came into the emergency room and the ER said he had developed some left facial weakness, left upper extremity weakness. His did not notice any that and the patient denies that. CTA of the neck and [place] were normal. He is down here from [place] for vacation. PAST MEDICAL HISTORY: As above. Also, status post carotid surgery. REVIEW OF SYSTEMS: He denied any chest pain, palpitations, atrial fibrillation, headache; renal, hepatic, or pulmonary disease; thyroid disease, lupus, ulcer, cancer, seizure, stroke. SOCIAL HISTORY: He is not a smoker or drinker. Lives with his . FAMILY HISTORY: Negative for cancer, seizure, seizure. ALLERGIES: LEVAQUIN, SULFA, AMBIEN. MEDICATIONS AT HOME 1. Keflex. 2. Zofran. 3. Chlorthalidone 4. Percocet. 5. Clonidine. 6. Fentanyl patch. 7. Promethazine. 8. 81 of aspirin. 9. Hydralazine. 10. Losartan. 11. Gabapentin. 12. Sotalol. 13. Metformin. 14. Carvedilol. 15. Atorvastatin. 16. Amlodipine. 17. Allopurinol. PHYSICAL EXAMINATION: VITAL SIGNS: Afebrile, 63, 17, 173/77-143/71. NECK: There were no carotid bruits. HEART: Regular rhythm. I do not detect a murmur. NEUROLOGIC: Pupils are equal, Visual coelho are full. Extraocular movements intact without nystagmus. Face is symmetric with normal sensation. Tongue was midline. There is no drift. He had decreased hearing to finger rub bilaterally. He had normal strength in upper and lower extremities bilaterally. DTRs are absent throughout. Toes are downgoing bilaterally. Pinprick is intact throughout. He was not ataxic on [id number]. Speech is fluent. He is not aphasic. He tells me has been walking fine. IMAGING STUDIES: CT of the brain was normal. CTA of the neck and [place] were read as normal. EKG, sinus sp, first degree AV block, inferior infarct. LABORATORY DATA: CBC is normal. Basic metabolic profile, CPK, troponin all essentially normal. UA is negative. Coags are normal. IMPRESSION AND RECOMMENDATIONS: He denies any left-sided numbness. I think the best thing to do would be to put him on Plavix. They could stop his aspirin in 3 days. It looks like he could probably be discharged. We could do an echo here and if he has a very low ejection fraction, less than 20%, he could be anticoagulated. I would ask the med team to check his left ear and make sure there is no infection in there. Otherwise, he denies that there was actually any neurological issue here at all. He [place] regular doctor after he is discharged. MD NEHAL Perry/PETRONA , 05:44 PM , 06:15 PM
--- NOTE | 2018-01-20 19:12 | US ---
EXAM DATE: 01/20/2018 6:14 PM EDT AGE/SEX: 77 years / Male INDICATIONS: Syncope. CLINICAL DATA: This is the patient's initial encounter. Patient reports that signs and symptoms have been present for 1 day and indicates a pain score of 0/10. MEDICAL/SURGICAL HISTORY: Congestive heart failure. Gastroesophageal reflux disease. Hypercho lesterolemia. Coronary artery disease. Back pain. Diabetes. Gout. Hiatal hernia. Hypertension. LA. S clarisa stenosis. TIA. . Bilateral knee replacement. Internal defibrillator. Carotid artery surgery. COMPARISON: [facility], CTA NECK W CONTRAST W 3D, 01/20/2018. . VELOCITY PARAMETERS: ICA/CCA Ratio: Right 1.26 , Left 1.03 ICA: Right 164 cm/sec, Left 104 cm/sec CCA: Right 130 cm/sec, Left 101 cm/sec ECA: Right 141 cm/sec, Left 131 cm/sec Vertebral: Right 57 cm/sec antegrade, Left 64 cm/sec antegrade FINDINGS: Right Carotid: Mild arteriosclerotic plaque is visualized with some shadowing..The waveforms are wit hin normal limits. Left Carotid: Mild arteriosclerotic plaque is visualized. The waveforms are within normal limits. Other: Oval anechoic smooth margin lesion in the left lobe of the thyroid demonstrating through cartwright smission measures 1.2 x 1.1 x 1.1 cm having features characteristic of a cyst.. CONCLUSION: 1. Right Internal Carotid Artery: Findings indicate 50-69% stenosis. 2. Left Internal Carotid Artery: Findings indicate <50% stenosis. 3. Please note that a CTA of the carotids was performed on the same day and less than 30% stenosis i s verified bilaterally. CTA is more accurate in delineating severity of disease than ultrasound. Electronically signed by: Leighton Moody MD 01/20/2018 7:10 PM EDT
[2018-01-20 19:47] LABS: Creatine Kinase 121 U/L (39-308)
[2018-01-20] MEDS ORDERED: ICOSAPENT ETHYL 2 GM PO SCH (21:00)
[2018-01-20] MEDS: Carvedilol 12.5 MG Tablet PO SCH (22:51)
[2018-01-20] MEDS: Allopurinol 300 MG Tablet PO SCH (22:52)
[2018-01-20] MEDS: Famotidine 20 MG Tablet PO SCH (22:52)
[2018-01-21 01:06] LABS: Creatine Kinase 97 U/L (39-308)
[2018-01-21 03:56] LABS: Baso # (Auto) 0.1 th/mm3 (0.0-0.2); Baso % (Auto) 0.8 % (0.0-2.0); Eos # (Auto) 0.6 th/mm3 (0.0-0.4); Eos % (Auto) 6.5 % (0.0-4.0); Hemoglobin 12.9 gm/dL (13.0-17.0); Lymph # (Auto) 2.3 th/mm3 (1.0-4.8); Lymph % (Auto) 23.9 % (9.0-44.0); Mean Corpuscular Hemoglobin 27.9 pg (27.0-34.0); Mean Corpuscular Volume 84.6 fL (80.0-100.0); Mean Platelet Volume 7.1 fL (7.0-11.0); Mono # (Auto) 0.9 th/mm3 (0.0-0.9); Mono % (Auto) 9.2 % (0.0-8.0); Neut # (Auto) 5.8 th/mm3 (1.8-7.7); Neut % (Auto) 59.6 % (16.0-70.0); Platelet Count 188 th/mm3 (150-450); Red Blood Count 4.61 mil/mm3 (4.50-5.90); Red Cell Distribution Width 16.8 % (11.6-17.2); White Blood Count 9.7 th/mm3 (4.0-11.0)
[2018-01-21 04:14] LABS: INR 1.2 Ratio; Prothrombin Time 11.8 sec (9.8-11.6)
[2018-01-21 04:21] LABS: Albumin 3.3 g/dL (3.4-5.0); Anion Gap 9 meq/L (5-15); Aspartate Aminotransferase 12 U/L (15-37); Blood Urea Nitrogen 18 mg/dL (7-18); Calcium 8.3 mg/dL (8.5-10.1); Carbon Dioxide 28.1 meq/L (21.0-32.0); Chloride 103 meq/L (98-107); Glomerular Filtration Rate 63 mL/min (>89); Glucose,Random 93 mg/dL (74-106); Magnesium 1.6 mg/dL (1.5-2.5); Potassium 3.6 meq/L (3.5-5.1); Sodium 140 meq/L (136-145)
[2018-01-21 04:31] LABS: Alanine Aminotransferase 24 U/L (12-78); Alkaline Phosphatase 72 U/L (45-117); Chol/HDL Ratio 2.61 Ratio; Cholesterol 78 mg/dL (120-200); Creatine Kinase 92 U/L (39-308); Free T4 (Free Thyroxine) 1.17 ng/dL (0.76-1.46); HDL Cholesterol 29.8 mg/dL (40.0-60.0); LDL Cholesterol,Calculated 21 mg/dL (0-99); Phosphorus 3.9 mg/dL (2.5-4.9); Total Protein 6.5 g/dL (6.4-8.2); Triglycerides 135 mg/dL (42-150)
[2018-01-21] MEDS: Sod Chloride 0.9% Inj 1,000 ML IV.CONT SCH (04:45)
[2018-01-21] MEDS: Insulin NovoLOG Aspart Correctional Sugar Inj SQ SCH ×2 (04:45→16:49)
--- NOTE | 2018-01-21 07:03 | P.PNNEU ---
Subjective Subjective Comments: No acute events reported No headache No chest pain No dyspnea Active Medications: Active Medications Acetaminophen (Tylenol) 650 mg PO Q6HR PRN PRN Reason: PAIN SCALE 1 TO 2 Allopurinol (Zyloprim) 300 mg PO BID [facility] Last Admin: 01/20/18 22:52 Dose: Not Given Amlodipine Besylate (Norvasc) 10 mg PO DAILY [facility] Atorvastatin Calcium (Lipitor) 80 mg PO DAILY [facility] Carvedilol (Coreg) 25 mg PO BID [facility] Last Admin: 01/20/18 22:51 Dose: 25 mg Chlorthalidone (Hygroton) 25 mg PO DAILY [facility] Clonidine HCl (Catapress-Tts 0.2 Mg Patch.7d) 1 patch T-DERMAL WEEKLY [facility] Clopidogrel Bisulfate (Plavix) 75 mg PO DAILY [facility] Last Admin: 01/20/18 18:05 Dose: 75 mg Dextrose (D50w Vial) 50 ml IV.PUSH UNSCH PRN PRN Reason: PER HYPOGLYCEMIA PROTOCOL Famotidine (Pepcid) 20 mg PO BID [facility] Last Admin: 01/20/18 22:52 Dose: 20 mg Fentanyl (Duragesic 25 Mcg Patch.72hr) 1 patch T-DERMAL Q72H [facility] Last Admin: 01/20/18 16:58 Dose: 1 patch Gabapentin (Neurontin) 300 mg PO TID [facility] Last Admin: 01/20/18 17:02 Dose: 300 mg Glucagon (Glucagon Inj) 1 mg OTHER UNSCH PRN PRN Reason: per Hypoglycemic Protocol Glucagon (Glucagon Inj) 1 mg OTHER PRN PRN PRN Reason: for Hypoglycemia Protocol Hydralazine HCl (Apresoline) 100 mg PO TID [facility] Last Admin: 01/20/18 17:02 Dose: 100 mg Sodium Chloride (Ns Inj) 1,000 mls @ 70 mls/hr IV.CONT .[id number] [facility] Last Admin: 01/21/18 04:45 Dose: Not Given Insulin Aspart (Novolog Insulin Correctional Sugar Inj) 0 unit SQ ACHS AND 3AM [facility]; Protocol Last Admin: 01/21/18 04:45 Dose: Not Given Losartan Potassium (Cozaar) 100 mg PO BID [facility] Last Admin: 01/20/18 22:51 Dose: 100 mg Morphine Sulfate (Morphine Inj) 2 mg IV.PUSH Q3H PRN PRN Reason: PAIN 3-5; IF UABLE TO TAKE PO Morphine Sulfate (Morphine Inj) 4 mg IV.PUSH Q3H PRN PRN Reason: BREAKTHROUGH PAIN Morphine Sulfate (Morphine Inj) 4 mg IV.PUSH Q3H PRN PRN Reason: PAIN 6-10;IF UNABLE TO TAKE PO Naloxone HCl (Narcan Inj) 0.4 mg IV.PUSH UNSCH PRN PRN Reason: SEE LABEL COMMENTS Ondansetron HCl (Zofran Odt) 4 mg PO Q6H PRN PRN Reason: Nausea Oxycodone/Acetaminophen (Percocet 10/325 Mg) 1 tab PO Q6H PRN PRN Reason: PAIN SCALE 6 TO 10 Last Admin: 01/21/18 04:59 Dose: 1 tab Oxycodone/Acetaminophen (Percocet 5/325 Mg) 1 tab PO Q6H PRN PRN Reason: PAIN SCALE 3 TO 5 Patch Removal (Remove Old Patch) 1 each T-DERMAL Q72H [facility] Last Admin: 01/20/18 16:58 Dose: 1 each Patch Removal (Remove Old Patch) 1 each T-DERMAL WEEKLY [facility] Icosapent Ethyl [ (Vascepa] 2 G) 0 each PO BID [facility] Promethazine HCl (Phenergan) 25 mg PO Q6H PRN PRN Reason: Nausea Last Admin: 01/21/18 04:59 Dose: 25 mg Sotalol HCl (Betapace) 80 mg PO Q12HR [facility] Last Admin: 01/20/18 16:57 Dose: 80 mg Allergies/Adverse Reactions: Allergies Allergy/AdvReac Type Severity Reaction Status Date / Time levofloxacin [From Levaquin] Allergy Swelling Verified 01/20/18 09:52 of Lip/Tongue/Throat Sulfa (Sulfonamide AdvReac Rash Verified 01/20/18 09:52 Antibiotics) zolpidem [From Ambien] AdvReac Confusion Verified 01/20/18 09:52 Physical Exam Vital signs: Vital Signs 01/20/18 09:30 01/20/18 09:36 01/20/18 10:07 Temperature 97.3 F L Pulse Rate 62 94 H Respiratory Rate 20 Blood Pressure 163/78 H Pulse Oximetry 98 95 01/20/18 10:53 01/20/18 11:50 01/20/18 14:00 Temperature 97.8 F 97.8 F 98.1 F Pulse Rate 58 L 58 L 62 Respiratory Rate 16 16 18 Blood Pressure 147/67 H 143/71 H 167/71 H Pulse Oximetry 97 98 97 01/20/18 15:51 01/20/18 16:56 01/20/18 17:27 Temperature 97.8 F 97.9 F 97.8 F Pulse Rate 58 L 54 L 63 Respiratory Rate 18 20 17 Blood Pressure 158/83 H 134/68 173/77 H Pulse Oximetry 98 94 L 01/20/18 19:51 01/21/18 00:00 01/21/18 03:45 Temperature 98.1 F 98.4 F 98.2 F Pulse Rate 63 59 L 56 L Respiratory Rate 17 16 17 Blood Pressure 144/65 H 145/68 H 176/86 H Pulse Oximetry 93 L 92 L 95 01/21/18 04:00 Temperature Pulse Rate Respiratory Rate Blood Pressure 148/72 H Pulse Oximetry Intake & Output 01/20/18 01/21/18 01/21/18 18:59 06:59 18:59 Output Total 300 / 300 Balance -300 / -300 Weight 86.183 kg Output: Urine 300 / 300 Other: # Voids 1 Narrative: vff face sym 5/5 t/o Objective Laboratory Results - last 24 hr 01/20/18 01/20/18 01/20/18 10:04 10:04 10:04 WBC 10.8 RBC 5.09 Hgb 14.1 POC Hgb (Calc) 15.0 Hct 43.3 POC Hct 44.0 MCV 85.0 MCH 27.7 MCHC 32.6 RDW 17.2 Plt Count 217 MPV 7.5 Neut % (Auto) 73.0 H Lymph % (Auto) 15.1 Mason % (Auto) 6.3 Eos % (Auto) 4.9 H Baso % (Auto) 0.7 Neut # (Auto) 7.9 H Lymph # (Auto) 1.6 Mason # (Auto) 0.7 Eos # (Auto) 0.5 H Baso # (Auto) 0.1 WBC Differential . Differential Comment Auto diff final PT 11.0 INR 1.1 APTT 25.6 Fibrinogen 309 POC Sodium 139 Sodium POC Potassium 4.1 Potassium POC Chloride 101 L Chloride Carbon Dioxide Anion Gap POC BUN 13 BUN Creatinine POC Creatinine 1.1 Estimated GFR POC Glucose 145 H Random Glucose Calcium Phosphorus Magnesium Total Bilirubin AST ALT Alkaline Phosphatase Total Creatine Kinase Troponin I Total Protein Albumin Triglycerides Cholesterol LDL Cholesterol, Calc HDL Cholesterol Cholesterol/HDL Ratio TSH Free T4 Urine Color Urine Clarity Urine pH Ur Specific Bighorn Urine Protein Urine Glucose (UA) Urine Ketones Urine Occult Blood Urine Nitrate Urine Bilirubin Urine Urobilinogen Ur Leukocyte Esterase Urine RBC Urine WBC Ur Squamous Epith Cells Urine Mucus Micro UA Comment Urine Culture Comments Blood Type Blood Type Recheck Antibody Screen 01/20/18 01/20/18 01/20/18 10:04 10:04 11:20 WBC RBC Hgb POC Hgb (Calc) Hct POC Hct MCV MCH MCHC RDW Plt Count MPV Neut % (Auto) Lymph % (Auto) Mason % (Auto) Eos % (Auto) Baso % (Auto) Neut # (Auto) Lymph # (Auto) Mason # (Auto) Eos # (Auto) Baso # (Auto) WBC Differential Differential Comment PT INR APTT Fibrinogen POC Sodium Sodium POC Potassium Potassium POC Chloride Chloride Carbon Dioxide Anion Gap POC BUN BUN Creatinine POC Creatinine Estimated GFR POC Glucose Random Glucose Calcium Phosphorus Magnesium Total Bilirubin AST ALT Alkaline Phosphatase Total Creatine Kinase 135 Troponin I Less than 0.02 L Total Protein Albumin Triglycerides Cholesterol LDL Cholesterol, Calc HDL Cholesterol Cholesterol/HDL Ratio TSH Free T4 Urine Color Yellow Urine Clarity Clear Urine pH 5.0 Ur Specific Bighorn 1.026 Urine Protein Negative Urine Glucose (UA) Negative Urine Ketones Negative Urine Occult Blood Negative Urine Nitrate Negative Urine Bilirubin Negative Urine Urobilinogen Less than 2 Ur Leukocyte Esterase Negative Urine RBC Less than 1 Urine WBC Less than 1 Ur Squamous Epith Cells <1 Urine Mucus Few H Micro UA Comment Culture not ind Urine Culture Comments Culture not ind Blood Type B Positive Blood Type Recheck Required Antibody Screen Negative 01/20/18 01/20/18 01/20/18 16:54 18:30 22:04 WBC RBC Hgb POC Hgb (Calc) Hct POC Hct MCV MCH MCHC RDW Plt Count MPV Neut % (Auto) Lymph % (Auto) Mason % (Auto) Eos % (Auto) Baso % (Auto) Neut # (Auto) Lymph # (Auto) Mason # (Auto) Eos # (Auto) Baso # (Auto) WBC Differential Differential Comment PT INR APTT Fibrinogen POC Sodium Sodium POC Potassium Potassium POC Chloride Chloride Carbon Dioxide Anion Gap POC BUN BUN Creatinine POC Creatinine Estimated GFR POC Glucose 126 H 180 H Random Glucose Calcium Phosphorus Magnesium Total Bilirubin AST ALT Alkaline Phosphatase Total Creatine Kinase 121 Troponin I Less than 0.02 L Total Protein Albumin Triglycerides Cholesterol LDL Cholesterol, Calc HDL Cholesterol Cholesterol/HDL Ratio TSH Free T4 Urine Color Urine Clarity Urine pH Ur Specific Bighorn Urine Protein Urine Glucose (UA) Urine Ketones Urine Occult Blood Urine Nitrate Urine Bilirubin Urine Urobilinogen Ur Leukocyte Esterase Urine RBC Urine WBC Ur Squamous Epith Cells Urine Mucus Micro UA Comment Urine Culture Comments Blood Type Blood Type Recheck Antibody Screen 01/21/18 01/21/18 01/21/18 00:15 03:25 03:35 WBC 9.7 RBC 4.61 Hgb 12.9 L POC Hgb (Calc) Hct 39.0 POC Hct MCV 84.6 MCH 27.9 MCHC 33.0 RDW 16.8 Plt Count 188 MPV 7.1 Neut % (Auto) 59.6 Lymph % (Auto) 23.9 Mason % (Auto) 9.2 H Eos % (Auto) 6.5 H Baso % (Auto) 0.8 Neut # (Auto) 5.8 Lymph # (Auto) 2.3 Mason # (Auto) 0.9 Eos # (Auto) 0.6 H Baso # (Auto) 0.1 WBC Differential . Differential Comment Auto diff final PT INR APTT Fibrinogen POC Sodium Sodium POC Potassium Potassium POC Chloride Chloride Carbon Dioxide Anion Gap POC BUN BUN Creatinine POC Creatinine Estimated GFR POC Glucose 100 Random Glucose Calcium Phosphorus Magnesium Total Bilirubin AST ALT Alkaline Phosphatase Total Creatine Kinase 97 Troponin I Less than 0.02 L Total Protein Albumin Triglycerides Cholesterol LDL Cholesterol, Calc HDL Cholesterol Cholesterol/HDL Ratio TSH Free T4 Urine Color Urine Clarity Urine pH Ur Specific Bighorn Urine Protein Urine Glucose (UA) Urine Ketones Urine Occult Blood Urine Nitrate Urine Bilirubin Urine Urobilinogen Ur Leukocyte Esterase Urine RBC Urine WBC Ur Squamous Epith Cells Urine Mucus Micro UA Comment Urine Culture Comments Blood Type Blood Type Recheck Antibody Screen 01/21/18 01/21/18 03:35 03:35 WBC RBC Hgb POC Hgb (Calc) Hct POC Hct MCV MCH MCHC RDW Plt Count MPV Neut % (Auto) Lymph % (Auto) Mason % (Auto) Eos % (Auto) Baso % (Auto) Neut # (Auto) Lymph # (Auto) Mason # (Auto) Eos # (Auto) Baso # (Auto) WBC Differential Differential Comment PT 11.8 H INR 1.2 APTT Fibrinogen POC Sodium Sodium 140 POC Potassium Potassium 3.6 POC Chloride Chloride 103 Carbon Dioxide 28.1 Anion Gap 9 POC BUN BUN 18 Creatinine 1.14 POC Creatinine Estimated GFR 63 L POC Glucose Random Glucose 93 Calcium 8.3 L Phosphorus 3.9 Magnesium 1.6 Total Bilirubin 0.6 AST 12 L ALT 24 Alkaline Phosphatase 72 Total Creatine Kinase 92 Troponin I Less than 0.02 L Total Protein 6.5 Albumin 3.3 L Triglycerides 135 Cholesterol 78 L LDL Cholesterol, Calc 21 HDL Cholesterol 29.8 L Cholesterol/HDL Ratio 2.61 TSH 3.210 Free T4 1.17 Urine Color Urine Clarity Urine pH Ur Specific Bighorn Urine Protein Urine Glucose (UA) Urine Ketones Urine Occult Blood Urine Nitrate Urine Bilirubin Urine Urobilinogen Ur Leukocyte Esterase Urine RBC Urine WBC Ur Squamous Epith Cells Urine Mucus Micro UA Comment Urine Culture Comments Blood Type Blood Type Recheck Antibody Screen Review/Management - Review/Management Daily Summary: imp ldl nl sr on plavix and can dc on plavix and dc asa in three days if his echo neg he denies left sided sx
[2018-01-21] MEDS ORDERED: Chlorthalidone 50 MG Tablet PO SCH (09:00)
[2018-01-21] MEDS ORDERED: amLODIPine 10 MG Tablet PO SCH (09:00)
--- NOTE | 2018-01-21 11:44 | P.PN ---
Subjective Interval history: Follow-up visit TIA, left-sided weakness, slurred speech. Patient seen and examined today. Reports he is doing a lot better. Denies any left-sided facial weakness, slurred speech, left-sided weakness, diplopia, change in vision , headaches, dizziness. States he is ready to go home and requesting to go home. States she is on vacation and will follow up with his primary care doctor when he goes [place]. States that the echocardiogram has been done. Discussed with patient plan of treatment. He will start on Plavix and will DC the aspirin after 3 days and remain on Plavix. Verbalized understanding. States he is compliant with his medication he even has a box chest were in all his medications are labeled in place. Physical Exam Vital signs: Vital Signs 01/20/18 11:50 01/20/18 14:00 01/20/18 15:51 Temperature 97.8 F 98.1 F 97.8 F Pulse Rate 58 L 62 58 L Respiratory Rate 16 18 18 Blood Pressure 143/71 H 167/71 H 158/83 H Pulse Oximetry 98 97 01/20/18 16:56 01/20/18 17:27 01/20/18 19:51 Temperature 97.9 F 97.8 F 98.1 F Pulse Rate 54 L 63 63 Respiratory Rate 20 17 17 Blood Pressure 134/68 173/77 H 144/65 H Pulse Oximetry 98 94 L 93 L 01/21/18 00:00 01/21/18 03:45 01/21/18 04:00 Temperature 98.4 F 98.2 F Pulse Rate 59 L 56 L Respiratory Rate 16 17 Blood Pressure 145/68 H 176/86 H 148/72 H Pulse Oximetry 92 L 95 01/21/18 07:40 01/21/18 11:32 Temperature 97.1 F L 98.1 F Pulse Rate 57 L 51 L Respiratory Rate 18 19 Blood Pressure 142/69 H 153/72 H Pulse Oximetry 94 L 96 Intake & Output 01/20/18 01/21/18 01/21/18 18:59 06:59 18:59 Output Total 300 / 300 Balance -300 / -300 Weight 86.183 kg Output: Urine 300 / 300 Other: # Voids 1 Narrative: GENERAL: This is a well-nourished, well-developed patient, in no apparent distress. SKIN: Warm and dry HEENT: Normocephalic. Pupils equal round and reactive. Nose without bleeding. Airway patent. NECK: Trachea midline. CARDIOVASCULAR: Regular rate and rhythm with murmurs. No gallops, or rubs. RESPIRATORY: Clear to auscultation. Breath sounds equal bilaterally. No wheezes , rales, or rhonchi. GASTROINTESTINAL: Abdomen soft, non-tender, nondistended. Bowel Sounds normoactive x4. MUSCULOSKELETAL: Extremities without clubbing, cyanosis, or edema. NEUROLOGICAL: Awake and alert. Oriented to time, place, person. No focal neuro deficit. Moves all extremities. Normal speech. Results - Labs CBC & Chem 7: 01/21/18 03:35 01/21/18 03:35 Laboratory Results - last 24 hr 01/20/18 01/20/18 01/20/18 16:54 18:30 22:04 WBC RBC Hgb Hct MCV MCH MCHC RDW Plt Count MPV Neut % (Auto) Lymph % (Auto) Caldwell % (Auto) Eos % (Auto) Baso % (Auto) Neut # (Auto) Lymph # (Auto) Caldwell # (Auto) Eos # (Auto) Baso # (Auto) WBC Differential Differential Comment PT INR Sodium Potassium Chloride Carbon Dioxide Anion Gap BUN Creatinine Estimated GFR POC Glucose 126 H 180 H Random Glucose Calcium Phosphorus Magnesium Total Bilirubin AST ALT Alkaline Phosphatase Total Creatine Kinase 121 Troponin I Less than 0.02 L Total Protein Albumin Triglycerides Cholesterol LDL Cholesterol, Calc HDL Cholesterol Cholesterol/HDL Ratio TSH Free T4 01/21/18 01/21/18 01/21/18 00:15 03:25 03:35 WBC 9.7 RBC 4.61 Hgb 12.9 L Hct 39.0 MCV 84.6 MCH 27.9 MCHC 33.0 RDW 16.8 Plt Count 188 MPV 7.1 Neut % (Auto) 59.6 Lymph % (Auto) 23.9 Caldwell % (Auto) 9.2 H Eos % (Auto) 6.5 H Baso % (Auto) 0.8 Neut # (Auto) 5.8 Lymph # (Auto) 2.3 Caldwell # (Auto) 0.9 Eos # (Auto) 0.6 H Baso # (Auto) 0.1 WBC Differential . Differential Comment Auto diff final PT INR Sodium Potassium Chloride Carbon Dioxide Anion Gap BUN Creatinine Estimated GFR POC Glucose 100 Random Glucose Calcium Phosphorus Magnesium Total Bilirubin AST ALT Alkaline Phosphatase Total Creatine Kinase 97 Troponin I Less than 0.02 L Total Protein Albumin Triglycerides Cholesterol LDL Cholesterol, Calc HDL Cholesterol Cholesterol/HDL Ratio TSH Free T4 01/21/18 01/21/18 01/21/18 03:35 03:35 09:38 WBC RBC Hgb Hct MCV MCH MCHC RDW Plt Count MPV Neut % (Auto) Lymph % (Auto) Caldwell % (Auto) Eos % (Auto) Baso % (Auto) Neut # (Auto) Lymph # (Auto) Caldwell # (Auto) Eos # (Auto) Baso # (Auto) WBC Differential Differential Comment PT 11.8 H INR 1.2 Sodium 140 Potassium 3.6 Chloride 103 Carbon Dioxide 28.1 Anion Gap 9 BUN 18 Creatinine 1.14 Estimated GFR 63 L POC Glucose 134 H Random Glucose 93 Calcium 8.3 L Phosphorus 3.9 Magnesium 1.6 Total Bilirubin 0.6 AST 12 L ALT 24 Alkaline Phosphatase 72 Total Creatine Kinase 92 Troponin I Less than 0.02 L Total Protein 6.5 Albumin 3.3 L Triglycerides 135 Cholesterol 78 L LDL Cholesterol, Calc 21 HDL Cholesterol 29.8 L Cholesterol/HDL Ratio 2.61 TSH 3.210 Free T4 1.17 - Imaging Impressions Head CTA 01/20/18 09:53 CONCLUSION: 1. Unremarkable CTA of the brain. Neck CTA 01/20/18 09:53 CONCLUSION: 1. Eccentric bulky calcified plaque extending from the right carotid bulb to the internal carotid origin with resultant approximately 25-30% stenosis. 2. Circumferential calcified plaque at the origin of the left internal carotid artery with resultant approximately 20-25% stenosis. 3. Patent bilateral vertebral arteries. 4. Small bilateral thyroid nodules. Carotid Doppler Study 01/20/18 15:49 CONCLUSION: 1. Right Internal Carotid Artery: Findings indicate 50-69% stenosis. 2. Left Internal Carotid Artery: Findings indicate <50% stenosis. 3. Please note that a CTA of the carotids was performed on the same day and less than 30% stenosis is verified bilaterally. CTA is more accurate in delineating severity of disease than ultrasound. Assessment and Plan - Assessment (1) TIA (transient ischemic attack) Code(s): G45.9 - Transient cerebral ischemic attack, unspecified Status: Acute (2) Diabetes Code(s): E11.9 - Type 2 diabetes mellitus without complications Status: Acute (3) Hypertension Code(s): I10 - Essential (primary) hypertension Status: Acute (4) Hyperlipidemia Code(s): E78.5 - Hyperlipidemia, unspecified Status: Acute (5) Obesity Code(s): E66.9 - Obesity, unspecified Status: Acute (6) Gout Code(s): M10.9 - Gout, unspecified Status: Acute (7) GERD (gastroesophageal reflux disease) Code(s): K21.9 - Gastro-esophageal reflux disease without esophagitis Status: Acute (8) Hx TIA/stroke w/o resid Code(s): Z86.73 - Personal history of transient ischemic attack (TIA), and cerebral infarction without residual deficits Status: Acute - Plan Patient is a 77-year-old gentleman who presented to the emergency department today after having some left-sided facial weakness and some slight slurred speech TIA History of AICD/permanent pacemaker History of [place] -Chest x-ray showed mild platelike atelectasis versus scarring in the right middle lobe. Otherwise the rest of the lungs are grossly clear -Head CT shows unremarkable scan of the brain -Head CTA unremarkable -Neck CTA Eccentric bulky calcified plaque extending from the right carotid bulb to the internal carotid origin with resultant approximately 25-30% stenosis. 2. Circumferential calcified plaque at the origin of the left internal carotid artery with resultant approximately 20-25% stenosis. 3. Patent bilateral vertebral arteries. 4. Small bilateral thyroid nodules. -Neurologist was consulted, appreciate recommendations. Patient needs to be DC'd on Plavix and DC ASA in 3 days if echo is negative -Echocardiogram pending, will DC post echo result -Troponins cardiac enzymes negative -Symptomatology has been resolved. -Restarted all his medications. Diabetes mellitus -continue on sliding scale with Accu-Cheks before meals and at bedtime Chronic back pain -continue on his Percocets and his fentanyl patch GERD continue on Pepcid HTN HLD -continue statin and BP medications. Acute sinus infection -Restart home medication on discharge DVT prop lovenox Discharge patient to home Condition on discharge: Improved Cardiac, diabetic as tolerated Ad Cristina activity as written Rx written: As written on DC plan, will start on Plavix will discontinue aspirin in 3 days per Follow-up with primary care physician
[2018-01-21] MEDS: Carvedilol 12.5 MG Tablet PO SCH (12:49)
[2018-01-21] MEDS: Allopurinol 300 MG Tablet PO SCH (12:50)
[2018-01-21] MEDS: Gabapentin 300 MG Capsule PO SCH (12:55)
[2018-01-21] MEDS: Famotidine 20 MG Tablet PO SCH (13:06)
--- NOTE | 2018-01-21 15:08 | ECHRPT ---
Indication: HYPERTENSIVE HEART DISEASE CONCLUSIONS The left ventricular systolic function is normal with an estimated ejection fraction in the range of 60-65%. Normal left ventricular size. Wall thickness is normal. No regional wall motion abnormalities are present. Trace mitral valve regurgitation. Aortic valve sclerosis is present. There is trace tricuspid valve regurgitation. The estimated pulmonary arterial pressure is 32.3 mmHg. BP: / HR: Rhythm: Sinus MEASUREMENTS (Male / Female) Normal Values Technical Quality:Fair 2D ECHO LVOT Diameter 2.1 cm LV Ejection Fraction MOD 4C 64.6 % LV Ejection Fraction 4C AL 65.8 % M-MODE LV Diastolic Diameter MM 6.3 cm 4.2 - 5.9 / 3.9 - 5.3 cm LV Systolic Diameter MM 4.4 cm LV Ejection Fraction MM Teich 57.0 % IVS Diastolic Thickness MM 1.1 cm 0.6 - 1.0 / 0.6 - 0.9 cm LVPW Diastolic Thickness MM 1.1 cm 0.6 - 1.0 / 0.6 - 0.9 cm LV Relative Wall Thickness MM 0.3 0.24 - 0.42 / 0.22 - 0.42 Aortic Root Diameter MM 2.7 cm LA Systolic Diameter MM 4.0 cm LA Ao Ratio MM 1.5 AV Cusp Separation MM 1.7 cm DOPPLER AV Peak Velocity 193.0 cm/s AV Peak Gradient 14.9 mmHg LVOT Peak Velocity 93.3 cm/s LVOT Peak Gradient 3.5 mmHg AV Area Cont Eq pk 1.7 cm MV Area PHT 4.8 cm Mitral E Point Velocity 123.0 cm/s Mitral A Point Velocity 101.0 cm/s Mitral E to A Ratio 1.2 LV E' Lateral Velocity 11.0 cm/s Mitral E to LV E' Lateral Ratio 11.2 LV E' Septal Velocity 7.8 cm/s Mitral E to LV E' Septal Ratio 15.8 TR Peak Velocity 236.0 cm/s TR Peak Gradient 22.3 mmHg Right Atrial Pressure 10.0 mmHg Pulmonary Artery Systolic Pressu 32.3 mmHg Right Ventricular Systolic Press 32.3 mmHg PV Peak Velocity 81.4 cm/s PV Peak Gradient 2.7 mmHg FINDINGS LEFT VENTRICLE The left ventricular systolic function is normal with an estimated ejection fraction in the range of 60-65%. Normal left ventricular size. Wall thickness is normal. No regional wall motion abnormalities are present. RIGHT VENTRICLE Normal right ventricular size and systolic function. LEFT ATRIUM The left atrial size is normal. RIGHT ATRIUM The right atrial size is normal. ATRIAL SEPTUM Normal atrial septal thickness without atrial level shunting by limited color doppler interrogation. AORTA The aortic root and proximal ascending aorta are normal in size on limited imaging. MITRAL VALVE Structurally normal mitral valve. Trace mitral valve regurgitation. AORTIC VALVE Trileaflet aortic valve. Aortic valve sclerosis is present. TRICUSPID VALVE Structurally normal tricuspid valve. There is trace tricuspid valve regurgitation. The estimated pulmonary arterial pressure is 32.3 mmHg. PULMONARY VALVE No pulmonary valve regurgitation or stenosis. VESSELS The inferior vena cava was not well visualized. PERICARDIUM No pericardial effusion. Ramírez Sr MD, FACC, FSCAI (Electronically Signed) Final Date:21 January 2018 15:07
[2018-01-21 16:33] LABS: Hemoglobin A1c 6.5 % (4.3-6.0)
== END 2018-01-21 18:11 | disposition home or self-care (01) ==
LOC: NEPE 09:28 → NEPGCP 09:28 → NEDA 09:28 → NEPGCP 17:20
PROVIDERS: ADMIT Internal Medicine; ATTEND Internal Medicine